=== PATIENT | male | born 1955 | race Caucasian/White ===

== ENCOUNTER 2022-05-01 14:15 | Emergency (ER) | payer OTHER, MEDICARE, MEDICAID, SELFPAY ==
--- NOTE | ~2022-05-01 | CT_ITS ---
EXAMINATION: CT brain wo con DATE: 05/01/2022 14:58 INDICATION: Head injury. TECHNIQUE: Computed tomography (CT) of the head was performed without intravenous contrast. The mA wa s adjusted according to patient size. Iterative reconstruction technique was employed. The dose-lengt h product was 681.00 mGy-cm. COMPARISON: None FINDINGS: There is no intracranial hemorrhage, acute infarction, or abnormal intracranial mass lesion . There are infarcts in the right basal ganglia. There is no intracranial hemorrhage or abnormal mass lesion. The ventricles are normal in size. The orbits are normal. The paranasal sinuses are clear. T he mastoid air cells are normal. IMPRESSION: 1. 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 Reviewed, dictated and finalized at location A.
--- NOTE | ~2022-05-01 | CT_ITS ---
EXAMINATION: CT cervical spine wo con DATE: 05/01/2022 14:59 INDICATION: Head injury. TECHNIQUE: Computed tomography (CT) of the cervical spine was performed without intravenous contrast. Automated exposure control and iterative reconstruction technique were employed. The dose-length pro duct was 538.90 mGy-cm. COMPARISON: None FINDINGS: There is mild kyphosis of cervical spine. Vertebral body is normal. There is moderately dec reased disc height at C4-C5, severely decreased disc height at C5-C6 and C6-C7, and mildly decreased disc height at C7-T1 with endplate remodeling. The following disc levels are specifically discussed: C2-C3: There is mild bilateral uncovertebral joint osteoarthritis. There is moderate bilateral facet joint osteoarthritis. There is no neural foraminal stenosis. There is no central canal stenosis. C3-C4: There is mild lateral uncovertebral joint osteoarthritis. There is moderate bilateral facet darwin int osteoarthritis. There is mild bilateral neural foraminal stenosis. There is no central canal sten osis. C4-C5: There is severe bilateral uncovertebral joint osteoarthritis. There is severe bilateral facet joint osteoarthritis. There is mild bilateral neural foraminal stenosis. There is mild central canal stenosis. C5-C6: There is severe bilateral uncovertebral joint osteoarthritis. There is severe bilateral facet joint osteoarthritis. There is mild bilateral neural foraminal stenosis. There is mild central canal stenosis. C6-C7: There is severe bilateral uncovertebral joint osteoarthritis. There is severe bilateral facet joint osteoarthritis. There is mild left neural foraminal stenosis. There is mild central canal steno sis. C7-T1: There is mild bilateral uncovertebral joint osteoarthritis. There is severe bilateral facet darwin int osteoarthritis. There is mild bilateral neural foraminal stenosis. There is no central canal sten osis. IMPRESSION: 1. No fracture. 2. Severe cervical spondylosis. Reviewed, dictated and finalized at location A.
--- NOTE | ~2022-05-01 | XR_ITS ---
EXAMINATION: XR shoulder RT min 2V DATE: 05/01/2022 15:07 INDICATION: Right shoulder pain post fall with prior arthroplasty. TECHNIQUE: AP internally and externally rotated and transscapular Y views of the right shoulder were obtained. COMPARISON: None FINDINGS: Right total shoulder arthroplasty which appears well seated in near-anatomic alignment. No fracture. Moderate osteoarthritis at the right acromioclavicular joint. Visualized portions of the right lung a re clear. Soft tissues are unremarkable.. IMPRESSION: 1. Right total shoulder arthroplasty. No acute osseous abnormality. 2. Moderate right acromioclavicular osteoarthritis. Reviewed, dictated and finalized at location B.
[2022-05-01 14:24] VITALS: BP 129/95; PULSE 87; RESP 16; TEMP 36.4; O2SAT 98
[2022-05-01] MEDS: MORPHINE SULFATE (*CRX) 4 MG/ML INJ IV PUSH (14:38)
[2022-05-01] MEDS: HYDROcodone/acetaminophen (*CRX) 5-325 MG TABLET 1 TAB PO (16:07)
[2022-05-01] MEDS: TETANUS,DIPHTHERIA,AC PERTUSSIS ADULT (0.5 ML) BOOSTRIX IM (16:09)
--- NOTE | 2022-05-01 16:16 | ED.GENADULT ---
HPI - General Adult General Chief complaint: Fall Stated complaint: fall Time Seen by Provider: 05/01/22 14:18 History of Present Illness HPI narrative: Patient is a 67-year-old male who presents ER after having a fall. He was getting onto a bus when he fell off the top step falling out of the bus and onto the concrete striking his head. He is unsure if he lost consciousness. He is not on any blood thinners. No change in vision or hearing. He does have some lacerations to the right scalp. He reports he landed on his right shoulder which has been surgically replaced. He has pain with attempted range of motion. No numbness or tingling. No additional concerns. Related Data Allergies Allergy/AdvReac Type Severity Reaction Status Date / Time No Known Allergies Allergy Verified 05/01/22 14:29 Review of Systems Review of Systems: All systems reviewed & are unremarkable except as noted in HPI and below Constitutional: Constitutional: Denies chills, Denies fatigue and Denies fever(s) Cardiovascular: Cardiovascular: Denies chest pain, Denies rapid heart rate and Denies radiating jaw, neck or arm pain Musculoskeletal: Musculoskeletal: Reports arthralgias and Denies joint swelling Integumentary/Breasts: Skin/Breast: Denies erythema and Denies rash Comments: Scalp lack Neurologic: Denies confusion, Reports syncope, Reports headache(s), Denies focal weakness and Denies numbness PMFSH Past Medical History Medical History (Updated 05/01/22 @ 18:35 by Yariel Gaines MD) GERD (gastroesophageal reflux disease) Hyperlipidemia Hypertension Surgical History Surgical History (Updated 05/01/22 @ 18:35 by Yariel Gaines MD) History of right shoulder replacement Exam Narrative: GENERAL: Well-appearing, well-nourished, and in no acute distress. HEAD: Normocephalic, 3 small lacerations right parietal scalp one measuring 1 cm, another 1.5 cm, and the last 2 cm. There are clustered together EYES: PERRL and EOMI. ENT: Mucous membranes moist. Neck: Normal range of motion of the cervical spine without midline tenderness or paraspinal muscular tenderness. CHEST: Clear to auscultation. No respiratory distress. HEART: Regular rate and rhythm. Normal peripheral pulses. ABDOMEN: Soft, nontender, nondistended. EXTREMITIES: Tenderness to right shoulder with limited range of motion due to pain. No deformity/bruising. No tenderness of the clavicle. NEURO: Alert and oriented x3. PSYCH: Normal mood and affect. Course Course Emergency Course: Patient informed of imaging results. Laceration repaired. Tetanus updated. Patient given a sling for comfort. Vital Signs Vital signs: Vital Signs Temperature 97.5 F L 05/01/22 14:24 Pulse Rate 87 05/01/22 14:24 Respiratory Rate 16 05/01/22 14:24 Blood Pressure 129/95 H 05/01/22 14:24 Pulse Oximetry 98 05/01/22 14:24 Oxygen Delivery Room Air 05/01/22 14:24 Temperature 97.5 F L 05/01/22 14:24 Pulse Rate 77 05/01/22 17:50 Respiratory Rate 14 05/01/22 17:50 Blood Pressure 116/71 05/01/22 17:50 Pulse Oximetry 98 05/01/22 17:50 Oxygen Delivery Room Air 05/01/22 14:24 Procedures Laceration Laceration 1: Date: 05/01/22 Time: 16:17 Site: scalp Side (If applicable): right Size (cm): 1 Description: linear Depth: simple, single layer Pre-repair: irrigated extensively ====== Skin Level ====== Skin layer closed with: lavinia Number of sutures: 1 ====== Subcutaneous Layer ====== ====== Muscle Layer ====== ====== Tendon Layer ====== Laceration 2: Date: 05/01/22 Time: 16:17 Site: scalp Side (If applicable): right Size (cm): 1.5 Description: linear Depth: simple, single layer Pre-repair: irrigated extensively ====== Skin Level ====== Skin layer closed with: lavinia Number of sutures:
[2022-05-01 16:39] VITALS: BP 132/94; PULSE 78; RESP 14; O2SAT 98
[2022-05-01 17:50] VITALS: BP 116/71; PULSE 77; RESP 14; O2SAT 98
== END 2022-05-01 17:51 | disposition home or self-care (01) ==
PROVIDERS: Emergency Provider Emergency Medicine; PCP Family Medicine
DX: S01.01XA Laceration without foreign body of scalp, initial encounter (principal); S43.401A Unspecified sprain of right shoulder joint, initial encounter; Z23 Encounter for immunization; E78.5 Hyperlipidemia, unspecified; I10 Essential (primary) hypertension; W10.8XXA Fall (on) (from) other stairs and steps, initial encounter; Y92.811 Bus as the place of occurrence of the external cause
CPT/HCPCS: 12002; 70450; 72125; 73030; 90471; 90715; 96374; 99284; A4565; A9270; J2270